=== PATIENT | male | born 1950 | race Asian ===

== ENCOUNTER 2022-01-16 07:47 | Day surgery (SDC) | payer BC ==
[~2022-01-16] VITALS: Ht 167.6 cm; Wt 68.9 kg
[2022-01-16] MEDS ORDERED: MEPERIDINE 100 MG INJ. 100 MG/ML VIAL ONE (08:59)
[2022-01-16] MEDS ORDERED: MIDAZOLAM HCL 5 MG/5 ML VIAL ONE (08:59)
[2022-01-16 12:58] VITALS: BP_SYST 171
== END 2022-01-16 11:00 | disposition home or self-care (01) ==
LOC: SDS 07:47 → SMU 07:48 → EDSEX 09:00 → SDS 11:00
PROVIDERS: ATTEND Internal Medicine Gastroenterology
DX: Z12.11 Encounter for screening for malignant neoplasm of colon (principal); D12.0 Benign neoplasm of cecum; D12.4 Benign neoplasm of descending colon; D12.5 Benign neoplasm of sigmoid colon; D12.8 Benign neoplasm of rectum; K57.30 Diverticulosis of large intestine without perforation or abscess without bleeding; K64.8 Other hemorrhoids; Z86.010 Personal history of colon polyps; Z79.899 Other long term (current) drug therapy; Z20.822 Contact with and (suspected) exposure to COVID-19
CPT/HCPCS: 36415 ×2; 45380; 45385; 82962; 87426; 87635; 88305; 99152; 99153; G0378; J2175; J2250; U0003; 45384